=== PATIENT | male | born 1965 | race Caucasian/White ===

== ENCOUNTER 2023-02-06 08:33 | Outpatient (CLI) | payer BC, SELFPAY | END 2023-02-06 08:34 | disposition home or self-care (01) | PROVIDERS: PCP Family Medicine; Visit Provider Family Medicine | DX: Z00.00 Encounter for general adult medical examination without abnormal findings (principal); E53.8 Deficiency of other specified B group vitamins; E55.9 Vitamin D deficiency, unspecified; R79.89 Other specified abnormal findings of blood chemistry; M10.9 Gout, unspecified; I10 Essential (primary) hypertension | CPT/HCPCS: 80048; 80061; 84153; 84403; 85025 ==

== ENCOUNTER 2023-03-05 10:25 | Outpatient (CLI) | payer BC, SELFPAY ==
--- NOTE | 2023-03-05 11:47 | W.ANESCHARGE ---
Anesthesia Charges Start Date/Time Anesthesia Start Date: 03/05/23 Anesthesia Start Time: 11:48 Stop Date/Time Anesthesia Stop Date: 03/05/23 Anesthesia Stop Time: 12:38
--- NOTE | 2023-03-05 12:41 | W.ANESCHARGE ---
Anesthesia Charges Start Date/Time Anesthesia Start Date: 03/05/23 Anesthesia Start Time: 11:48 Stop Date/Time Anesthesia Stop Date: 03/05/23 Anesthesia Stop Time: 12:38
== END 2023-03-05 10:26 | disposition home or self-care (01) ==
PROVIDERS: PCP Family Medicine; Visit Provider Surgery
DX: R19.5 Other fecal abnormalities (principal); K63.5 Polyp of colon; K62.1 Rectal polyp; K57.30 Diverticulosis of large intestine without perforation or abscess without bleeding
CPT/HCPCS: 45380; 45385; 811; 88305; J2704

== ENCOUNTER 2023-12-10 08:14 | Outpatient (CLI) | payer BC, SELFPAY ==
--- OUTSIDE RECORDS SUMMARY | 2023-12-12 07:16 | XMS_ITS | Clinical Summary ---
Author Name Unknown Organization [employer] [facility] Address [place], [place] [address] Care Team Providers Care Long Term Care Phlebotomist Name Role Phone Pcp, No Primary Care Provider Unavailabl e Allergies Active Allergy Reactions Criticality Noted Date Comments Amlodipine Insomnia 10/21/2013 Knees swollen and did not feel well. Medications Medication Sig Dispensed Refills Start Date End Date Status omega-3 fatty acids-vitamin E (FISH OIL) 1,000 mg CapIndications:Unspec ified essential hypertension Take 1 capsule by mouth 2 times daily with meals. 0 09/07/2011 Active cholecalciferol (VITAMIN D) 1,000 unit capsule Take 2 capsules by mouth once daily. 0 09/07/2011 Active fluticasone (50 mcg per actuation) nasal solution (FLONASE)Indications: Allergic rhinitis due to pollen Inhale 1 Sebastian into both nostrils once daily. 1 Bottle 3 01/28/2015 Active aspirin chewable 81 mg chewable tabletIndications:Ess ential hypertension Take 1 tablet by mouth once daily with a meal. 0 11/11/2017 Active cyanocobalamin (VITAMIN B-12) 1,000 mcg tabletIndications:B12 deficiency Take 1 tablet by mouth once daily. Recheck level after taking for 1 month 90 tablet 07/02/2019 Active metoprolol tartrate (LOPRESSOR) 50 mg tabletIndications:Hyp ertension, unspecified type Take 1 Tablet (50 mg) by mouth once daily. 90 Tablet 1 01/26/2022 Active lisinopriL (PRINIVIL; ZESTRIL) 40 mg tabletIndications:Hyp ertension, unspecified type TAKE 1 TABLET(40 MG) BY MOUTH TWICE DAILY 180 Tablet 2 04/11/2022 Active hydroCHLOROthiazide (HCTZ) 25 mg tabletIndications:HTN (hypertension) TAKE 1 TABLET(25 MG) BY MOUTH EVERY DAY 30 Tablet 12/23/2022 Active allopurinoL (ZYLOPRIM) 300 mg tabletIndications:Idi opathic gout of ankle, unspecified chronicity, unspecified laterality TAKE 1 TABLET BY MOUTH EVERY DAY 90 Tablet 12/25/2022 Active hydrALAZINE (APRESOLINE) 25 mg tabletIndications:Ess ential hypertension TAKE 1 TABLET(25 MG) BY MOUTH TWICE DAILY 60 Tablet 01/10/2023 Active tadalafiL (CIALIS) 10 mg tabletIndications:Ere ctile dysfunction, unspecified erectile dysfunction type Take 30 minutes before sexual activity. 12 Tablet 03/21/2023 Active Active Problems Problem Noted Date Diagnosed Date Obstructive sleep apnea syndrome 03/31/2017 B12 deficiency 12/19/2016 Pulmonary embolus, left 12/18/2016 Bilateral hip joint arthritis 05/06/2016 Overview: Apr 2016: bilateral hip joint steroid injections under fluoroscopic guidance by Dr. Richey: at 3 weeks, 90% better for right hip and 70% better for left hip. At 2 months: Right side is 80% better and left 50% better from injections. 08/14/16: bilateral hip joint steroid infections under fluoroscopic guidance by Dr. Richey. Lipoma 10/21/2013 Impaired fasting glucose 12/19/2011 Vitamin D deficiency 09/07/2011 Gout, unspecified 10/09/2010 Diverticulitis of colon (without mention of hemo rrhage) 12/07/2008 Unspecified essential hypertension 01/09/2008 Resolved Problems Problem Noted Date Diagnosed Date Resolved Date Anticoagulation monitoring, INR range 2-3 12/18/2016 04/01/2017 Immunizations Name Administration Dates Next Due AMB Influenza, IIV3 (Age >=3 years)(Flu [facility]) 06/09/2008 Influenza Virus, Unspecified 05/20/2018 Influenza, IIV3 (Age >=3 years) 06/09/2008,06/17 Influenza, IIV4 05/26/2019,05/22/2014 Influenza, IIV4 (=>6mos) MDV 05/31/2020,05/20/20 19 Td (Age >=7 Years) 08/20/1993 Tdap 01/26/2022,12/04/2010 Family History Medical History Relation Name Comments Diabetes Father Good Health Father Heart Disease Maternal Grandfather Stroke Maternal Grandfather in 70s Good Health Mother Hypertension Mother Diabetes Paternal Grandfather Relation Name Status Comments Father Alive Maternal Grandfather Maternal Grandmother Mother Alive Paternal Grandfather Paternal Grandmother Social History Tobacco Use Types Packs/Day Years Used Date Smoking Tobacco: Never Smokeless Tobacco: Never Tobacco Cessation:Counseling Given: Yes Alcohol Use Standard Drinks/Week Comments Yes 0 (1 standard drink = 0.6 oz pur e alcohol) PHQ-2 Answer Date Recorded PHQ-2 TOTAL SCORE 0 07/25/2020 Social Connections Answer Date Recorded Frequency of Communication with Friends and Fami ly Not on file 08/19/2021 Financial Resource Strain Answer Date R ecorded Difficulty of Paying Living Expenses Not on file 08/19/2021 Difficulty of Paying Living Expenses Not on file 08/19/2021 Sex and Gender Information Value Date Recorded Sex Assigned at Not on file Gender Identity Not on file Sexual Orientation Not on file Obstetrics History Last Filed Vital Signs Vital Sign Reading Time Taken Comments Blood Pressure 138/82 01/26/2022 8:11 AM CDT Pulse 70 01/26/2022 7:56 AM CDT Temperature 36.8 ??C (98.2 ??F) 08/23/2019 9:59 AM CS T Respiratory Rate 18 08/23/2019 9:59 AM CLIENT SERVICES ADMINISTRATOR Oxygen Saturation 98% 12/27/2021 8:15 AM CDT Inhaled Oxygen Concentration - - Weight 151.5 kg (334 lb) 08/23/2019 9:59 AM CLIENT SERVICES ADMINISTRATOR Height 178.3 cm (5' 10.2) 07/01/2019 8:01 AM CS T Body Mass Index 47.66 07/01/2019 8:01 AM CLIENT SERVICES ADMINISTRATOR Plan of Treatment Health Maintenance Due Date Last Done Comments HIV for age 15-65 1980 Zoster (shingles) series for age 50+ (1 of 2) 2015 BMI (ht and wt on same day) for age 18+ 07/01/2020 07/01/2019, 2018, 05/01/2018, Additional history exists Depression screening for age 12+ 07/25/2021 07/25/2020, 07/01/2019, 05/01/2018, Additional history exists Fecal testing non-DNA (FIT,FOBT,iFOBT) for age 45-75 06/07/2022 06/07/2021, 10/15/2019, 06/03/2018, Additional history exists COVID-19 vaccine series (2022- season) 2023 12/14/2020, 11/16/2020 Influenza for age 50-64 04/19/2024 05/31/20, 05/26/2019, 05/20/2019, Additional history exists Lipids for age 45-75 08/04/2025 08/04/2020, 07/01/2019, 05/23/2018, Additional history exists Tetanus booster 01/27/2032 01/26/2022, 11/17, 08/20/1993 Hepatitis C screening for age 18-79 Completed 07/01/2019 Tdap Completed 01/26/2022, 12/04/2010 Pneumococcal series for age 6-64 Aged Out No longer eligible based on patient's age to complete this topic Procedures Procedure Name Priority Date/Time Associated Diagnosis Comments OCCULT BLOOD IFOBT STOOL Routine 06/07/2021 7:39 AM CDT Screening for colorectal cancer LIPID PANEL W REFLEX MEASURED LDL Routine 08/04/2020 7:10 AM CLIENT SERVICES ADMINISTRATOR Hypertension, unspecified type ANTI HCV Routine 07/01/2019 8:53 AM CLIENT SERVICES ADMINISTRATOR Need for hepatitis C screening test from Last 3 Months or Most Recently Relevant to Health Maintenance Results * OCCULT BLOOD IFOBT STOOL (06/07/2021 7:39 AM CDT) STOOL BLOOD ,IFOBT Negative Negative 06/16/2021 8:38 AM CDT [facility] Stool STOOL SPECIMEN / Unknown Non-Blood / Unknown 06/07/2021 7:39 AM CDT 06/14/2021 7:39 AM CDT Deanna Orozco MD LABORATORY [facility] [address] [place] [address], [place] [phone] * LIPID PANEL W REFLEX MEASURED LDL (08/04/2020 7:10 AM CLIENT SERVICES ADMINISTRATOR) CHOLESTEROL,TOTAL 151 100 - 199 mg/dL 08/04/2020 3:16 PM CLIENT SERVICES ADMINISTRATOR [facility] [employer] [facility] TRIGLYCERIDES 66 <150 mg/dL 08/04/2020 3:16 PM CLIENT SERVICES ADMINISTRATOR [facility] [employer] HDL CHOLESTEROL 52 >40 mg/dL 0 3:16 PM CLIENT SERVICES ADMINISTRATOR [facility] TRAL LABORATORY NON-HDL CHOLESTEROL 99 <145 mg/dl 08/04/2020 3:16 PM CLIENT SERVICES ADMINISTRATOR [facility] TRAL LAB[facility]ORY CHOL/HDL RATIO 2.90 <4.50 08/04/2020 3:16 PM CLIENT SERVICES ADMINISTRATOR [facility] [employer] LDL CHOLESTEROL 86 <=130 mg/dL 08/04/2020 3:16 PM CLIENT SERVICES ADMINISTRATOR [facility] [employer] PROVIDER ORDERED STATUS RANDOM 08/04/2020 3:16 PM CLIENT SERVICES ADMINISTRATOR [facility] [employer] Blood BLOOD SPECIMEN / Unknown Venipuncture / Unknown 08/04/2020 7:10 AM CLIENT SERVICES ADMINISTRATOR 08/04/2020 7:13 AM CLIENT SERVICES ADMINISTRATOR Deanna Orozco MD [facility] [address] [place] [address], [place] * ANTI HCV (07/01/2019 8:53 AM CLIENT SERVICES ADMINISTRATOR) HEPATITIS C ANTIBODY Non-React demetrius Non-React demetrius 07/01/2019 3:19 PM CLIENT SERVICES ADMINISTRATOR [facility] [employer] Comment:Antibodies to HCV no t detected; does not exclude the possibility of exposure to HCV. Blood BLOOD SPECIMEN / Unknown Venipuncture / Unknown 07/01/2019 8:53 AM CLIENT SERVICES ADMINISTRATOR 07/01/2019 8:54 AM CLIENT SERVICES ADMINISTRATOR Deanna Orozco MD SEND OUTS [facility] [address] [place] [address] [address]. [address] [place] [address], from Last 3 Months or Most Recently Relevant to Health Maintenance Care Teams Long Term Care Phlebotomist Relationship Specialty Start Date End Date Pcp, No . PCP - General 03/01/23
== END 2023-12-10 08:15 | disposition home or self-care (01) ==
LOC: NFLDREF 12-12 07:14
PROVIDERS: PCP Family Medicine; Referring Provider Family Medicine; Visit Provider Family Medicine
DX: R79.89 Other specified abnormal findings of blood chemistry (principal)
CPT/HCPCS: 84403

== ENCOUNTER 2024-03-09 09:14 | Outpatient (CLI) | payer OTHER, SELFPAY ==
--- OUTSIDE RECORDS SUMMARY | 2024-03-09 09:18 | XMS_ITS | Clinical Summary ---
Author Organization [employer] [facility] Address [place], [place] [address] Care Team Providers Care Salesforce Developer Name Role Phone Pcp, No Primary Care [...] Allergic rhinitis due to pollen Inhale 1 [place] into both nostrils once daily. 1 Bottle [...] T Respiratory Rate 18 08/23/2019 9:59 AM JOURNEYMAN MEAT CUTTER Oxygen Saturation 98% 12/27/2021 8:15 AM CDT Inhaled Oxygen Concentration - - Weight 151.5 kg (334 lb) 08/23/2019 9:59 AM JOURNEYMAN MEAT CUTTER Height 178.3 cm (5' 10.2) 07/01/2019 8:01 AM CS T Body Mass Index 47.66 07/01/2019 8:01 AM JOURNEYMAN MEAT CUTTER Plan of Treatment Health Maintenance Due Date [...] 06/03/2018, Additional history exists COVID-19 vaccine series (3 2022- season) 2023 12/14/2020, 11/16/2020 Influenza for age [...] REFLEX MEASURED LDL Routine 08/04/2020 7:10 AM JOURNEYMAN MEAT CUTTER Hypertension, unspecified type ANTI HCV Routine 07/01/2019 8:53 AM JOURNEYMAN MEAT CUTTER Need for hepatitis C screening test from Last 3 Months or Most Recently Relevant to Health Maintenance Results * OCCULT BLOOD IFOBT STOOL (06/07/2021 7:39 AM CDT) STOOL BLOOD ,IFOBT Negative Negative 06/16/2021 8:38 AM CDT [facility] Stool STOOL SPECIMEN / Unknown Non-Blood / Unknown 06/07/2021 7:39 AM CDT 06/14/2021 7:39 AM CDT Deanna Orozco MD LABORATORY [facility] [address] [place] [address], [place] [phone] * LIPID PANEL W REFLEX MEASURED LDL (08/04/2020 7:10 AM JOURNEYMAN MEAT CUTTER) Pathologist [facility] CHOLESTEROL,TOTAL 151 100 - 199 mg/dL 08/04/2020 3:16 PM JOURNEYMAN MEAT CUTTER [facility] TRIGLYCERIDES 66 <150 mg/dL 08/04/2020 3:16 PM JOURNEYMAN MEAT CUTTER [facility] HDL CHOLESTEROL 52 >40 mg/dL 0 3:16 PM JOURNEYMAN MEAT CUTTER [facility] TRAL LABORATORY NON-HDL CHOLESTEROL 99 <145 mg/dl 08/04/2020 3:16 PM JOURNEYMAN MEAT CUTTER [facility] TRAL LABORATORY CHOL/HDL RATIO 2.90 <4.50 08/04/2020 3:16 PM JOURNEYMAN MEAT CUTTER [facility] TRAL LABORATORY LDL CHOLESTEROL 86 <=130 mg/dL 08/04/2020 3:16 PM JOURNEYMAN MEAT CUTTER [facility] [employer] [facility] TRAL LABORATORY PROVIDER ORDERED STATUS RANDOM 08/04/2020 3:16 PM JOURNEYMAN MEAT CUTTER [facility] TRAL LABORATORY Blood BLOOD SPECIMEN / Unknown Venipuncture / Unknown 08/04/2020 7:10 AM JOURNEYMAN MEAT CUTTER 08/04/2020 7:13 AM JOURNEYMAN MEAT CUTTER Deanna Orozco MD CHEMISTRY [facility] [address] [place] [address], [place] * ANTI HCV (07/01/2019 8:53 AM JOURNEYMAN MEAT CUTTER) [facility] HEPATITIS C ANTIBODY Non-React demetrius Non-React demetrius 07/01/2019 3:19 PM JOURNEYMAN MEAT CUTTER [facility] [employer] [facility] TRAL LABORATORY Comment:Antibodies to HCV no t detected; does not exclude the possibility of exposure to HCV. Blood BLOOD SPECIMEN / Unknown Venipuncture / Unknown 07/01/2019 8:53 AM JOURNEYMAN MEAT CUTTER 07/01/2019 8:54 AM JOURNEYMAN MEAT CUTTER Deanna Orozco MD SEND OUTS [facility] [address] [place] [address], from Last 3 Months or Most Recently Relevant to Health Maintenance Care Teams Salesforce Developer Relationship Specialty Start Date End Date Pcp, No . PCP - General 03/01/23
== END 2024-03-09 09:15 | disposition home or self-care (01) ==
PROVIDERS: PCP Family Medicine; Visit Provider Family Medicine
DX: Z00.00 Encounter for general adult medical examination without abnormal findings (principal); I10 Essential (primary) hypertension; R79.89 Other specified abnormal findings of blood chemistry; E53.8 Deficiency of other specified B group vitamins; E55.9 Vitamin D deficiency, unspecified; M10.9 Gout, unspecified
CPT/HCPCS: 80048; 80061; 84403; 84443; 84550; 85025; G0103

== ENCOUNTER 2025-04-26 10:56 | Outpatient (CLI) | payer OTHER, SELFPAY | END 2025-04-26 10:57 | disposition home or self-care (01) | PROVIDERS: PCP Family Medicine; Visit Provider Family Medicine | DX: I10 Essential (primary) hypertension (principal); R79.89 Other specified abnormal findings of blood chemistry; E53.8 Deficiency of other specified B group vitamins; E55.9 Vitamin D deficiency, unspecified; N52.9 Male erectile dysfunction, unspecified; E66.09 Other obesity due to excess calories; Z12.5 Encounter for screening for malignant neoplasm of prostate | CPT/HCPCS: 80048; 80061; 84403; G0103 ==